=== PATIENT | female | born 1990 | race Caucasian/White ===

== ENCOUNTER 2016-12-10 13:11 | Emergency (ER) | payer OTHER ==
[2016-12-10 13:21] VITALS: BP 137/92; PULSE 91; RESP 20; TEMP 97.8
[2016-12-10] MEDS ORDERED: GELATIN SPONGE,ABSORB (LARGE) 1 EACH SPONGE TOPICAL STA (14:02)
[2016-12-10] MEDS ORDERED: TOPICAL SKIN ADHESIVE 1 EACH AMP TOPICAL ONE (14:13)
--- NOTE | 2016-12-10 14:21 | ED ---
Wound/Laceration HPI - General Chief Complaint: Wound/Laceration Stated Complaint: Foot Laceration, cold symptoms Time Seen by Provider: 12/10/16 13:42 Source: patient, RN notes reviewed Mode of arrival: ambulatory Limitations: no limitations - History of Present Illness Initial Comments: Patient is a 26-year-old [employer] chief complaint of a right foot laceration. Patient reports that she was walking and her son dropped a bottle coconut oil. She she reports that the glass shattered. She did remove the piece of glass from her foot. She denies any decreased range of motion or peripheral persist paresthesias in her foot. She also reports that she is currently 20 weeks . She states that for the past few days she's had cold-like symptoms including fever or chills, sore throat. She states that she has not taken any Motrin or Tylenol. Patient's concerned that she does have the flu other family members have had similar symptoms. Patient denies any recent shortness of breath , chest pain, back pain, abdominal pain, nausea vomiting, numbness or tingling, dysuria or hematuria, constipation or diarrhea, headaches or visual changes, or any other current symptoms - Related Data Allergies Allergy/AdvReac Type Severity Reaction Status Date / Time Penicillins AdvReac Rash/Hives Verified 12/10/16 13:21 Review of Systems ROS Statement: Those systems with pertinent positive or pertinent negative responses have been documented in the HPI. ROS Other: All systems not noted in ROS Statement are negative. Past Medical History Past Medical History: No Reported History History of Any Multi-Drug Resistant Organisms: None Reported Past Surgical History: Appendectomy Past Psychological History: No Psychological Hx Reported Smoking Status: Never smoker Past Alcohol Use History: None Reported Past Drug Use History: None Reported General Exam - General Exam Comments Initial Comments: Well-appearing 26-year-old female. Patient does not appear to be in any acute distress. Limitations: no limitations General appearance: alert, in no apparent distress Head exam: Present: atraumatic, normocephalic, normal inspection Eye exam: Present: normal appearance, PERRL, EOMI. Absent: scleral icterus, conjunctival injection, periorbital swelling ENT exam: Present: normal exam, mucous membranes moist Neck exam: Present: normal inspection. Absent: tenderness, meningismus, lymphadenopathy Respiratory exam: Present: normal lung sounds bilaterally. Absent: respiratory distress, wheezes, rales, rhonchi, stridor Cardiovascular Exam: Present: regular rate, normal rhythm, normal heart sounds. Absent: systolic murmur, diastolic murmur, rubs, gallop, clicks GI/Abdominal exam: Present: soft, normal bowel sounds. Absent: distended, tenderness, guarding, rebound, rigid Extremities exam: Present: normal inspection, full ROM, normal capillary refill. Absent: tenderness, pedal edema, joint swelling, calf tenderness Right Lower Leg exam: Present: normal inspection, full ROM Ankle exam: Present: normal inspection, full ROM. Absent: swelling Foot/Toe exam: Present: full ROM, tenderness. Absent: normal inspection Neurovascular tendon exam: Present: no vascular compromise 1 - laceration 2 - laceration. 1cm Back exam: Present: normal inspection Neurological exam: Present: alert, oriented X3, CN II-XII intact Psychiatric exam: Present: normal affect, normal mood Skin exam: Present: warm, dry, intact, normal color. Absent: rash Course Vital Signs 12/10/16 13:18 Temperature 97.8 F Pulse Rate 91 Respiratory 20 Rate Blood Pressure 137/92 O2 Sat by Pulse 99 Oximetry Procedures - Laceration Laceration #1 Site: foot (right ) Size (cm): 1 Description: linear Depth: simple, single layer Sedation/Analgesia: midazolam Anesthetic Used: benzocaine 0.25% Anesthesia Technique: local infiltration Amount (mls): 2 Pre-repair: wound explored, irrigated extensively Type of Sutures: nylon Size of Sutures: 6-0 Number of Sutures: 2 Technique: simple, interrupted Patient Tolerated Procedure: well, no complications, other (Second toe laceration was closed with Dermabond.) Medical Decision Making - Medical Decision Making Patient is a 26-year-old [employer] chief complaint of a right foot laceration. The wound was cleaned with Betadine and soap solution. The laceration was closed with 2 sutures in the toe laceration was closed with Dermabond. Wound was dressed. Patient was monitored for any signs of infection. She also is complaining of upper respiratory symptoms for approximately 3-4 days. She does test positive for influenza B. Patient is 20 weeks . I discussed the possibility of Tamiflu is technically not indicated that she has passed the 48 hours as well as is category C in . Patient agrees that she does not want to take Tamiflu. I did advise her to take Tylenol and to rest and increase fluids. Patient understands the treatment plan will comply. She also understands she needs return the emergency Department for suture removal. Return parameters were discussed. - Lab Data Lab Results 12/10/16 Range/Units 14:15 Influenza Type A RNA Not Detected (Not Detectd) Influenza Type B (PCR) Detected H (Not Detectd) Disposition Clinical Impression: Foot laceration, Upper respiratory infection, Influenza B Disposition: HOME SELF-CARE Condition: Good Instructions: Care For Your Stitches (ED), Skin Adhesive Care (ED), Influenza ( ED) Additional Instructions: Please return to the emergency room in 8-10 days to have sutures removed. Please leave wound covered for the first 24-48 hours and then leave open to air after that time. Please use clean soap and water to clean the suture area to prevent scabbing over the top of your sutures. Please watch for any signs of infection which may include but not limited to increased pain, swelling, redness , fever or chills. Please return to the emergency room if any signs of infection do occur. Please return to the emergency room for any other concerns or complications. Patient advised to take Tylenol for the pain. Referrals: None,Stated [Primary Care Provider] - 1-2 days Eugene Hebert MD [REFERRING] - 1-2 days Time of Disposition: 14:48
== END 2016-12-10 15:12 | disposition home or self-care (01) ==
LOC: EC 13:11
DX: O99.512 Diseases of the respiratory system complicating pregnancy, second trimester (principal); S91.311A Laceration without foreign body, right foot, initial encounter; J10.1 Influenza due to other identified influenza virus with other respiratory manifestations; Z3A.20 20 weeks gestation of pregnancy; W25.XXXA Contact with sharp glass, initial encounter; Y93.01 Activity, walking, marching and hiking; Z88.0 Allergy status to penicillin
CPT/HCPCS: 12001; 87502; 99283

== ENCOUNTER 2017-11-07 15:05 | Emergency (ER) | payer OTHER ==
[2017-11-07 15:13] VITALS: BP 138/72; PULSE 122; RESP 20; TEMP 99
--- NOTE | 2017-11-07 15:25 | ED ---
General Adult HPI - General Chief complaint: Skin/Abscess/Foreign Body Stated complaint: Back pain Time Seen by Provider: 11/07/17 15:14 Source: patient, RN notes reviewed Mode of arrival: ambulatory Limitations: no limitations - History of Present Illness Initial comments: 27-year-old female presents to the emergency department with a chief complaint of right buttock pain. She states that she had a cyst on the right buttock that drained yesterday. She continues to have some redness and pain surrounding the area so she was concerned. She denies any history of this in the past. She denies any nausea vomiting. She states that she has been nervous about it. She doesn't know she's had fevers or not. She denies any vomiting with this. She has a history of this in the past. She was concerned due to his urethra so she thought that she should be seen.Patient denies any recent fever, chills, shortness of breath, chest pain, back pain, abdominal pain , nausea vomiting, numbness or tingling, dysuria or hematuria, constipation or diarrhea, headaches or visual changes, or any other current symptoms. - Related Data Previous Rx's Medication Instructions Recorded Cephalexin [Keflex] 500 mg PO Q6HR #40 cap 11/07/17 Sulfamethox-Tmp 800-160Mg [Bactrim 2 each PO Q12HR #56 tab 11/07/17 DS 800-160 mg] Allergies Allergy/AdvReac Type Severity Reaction Status Date / Time Penicillins AdvReac Rash/Hives Verified 11/07/17 15:12 Review of Systems ROS Statement: Those systems with pertinent positive or pertinent negative responses have been documented in the HPI. ROS Other: All systems not noted in ROS Statement are negative. Past Medical History Past Medical History: No Reported History History of Any Multi-Drug Resistant Organisms: None Reported Past Surgical History: Appendectomy, Section Past Psychological History: No Psychological Hx Reported Smoking Status: Never smoker Past Alcohol Use History: None Reported Past Drug Use History: None Reported General Exam Limitations: no limitations General appearance: alert, in no apparent distress ENT exam: Present: normal exam, mucous membranes moist Neck exam: Present: normal inspection. Absent: tenderness, meningismus, lymphadenopathy Respiratory exam: Present: normal lung sounds bilaterally. Absent: respiratory distress, wheezes, rales, rhonchi, stridor Cardiovascular Exam: Present: regular rate, normal rhythm, normal heart sounds Neurological exam: Present: alert, oriented X3 Psychiatric exam: Present: normal affect, normal mood Skin exam: Present: warm, dry, intact, other ( induration to the right gluteal area. No fluctuation.) Course Vital Signs 11/07/17 15:09 Temperature 99 F Pulse Rate 122 H Respiratory 20 Rate Blood Pressure 138/72 O2 Sat by Pulse 99 Oximetry Medical Decision Making - Medical Decision Making 27-year-old male presents for appears to be right gluteal cellulitis. There is concern that there may have been an abscess that she has had a drain. This time we discussed the abscess could form and we need to drink that time and return for hours and follow-up. We will start her on antibiotics. All questions have been answered. She will be discharged. Disposition Clinical Impression: Cellulitis, gluteal, right, Abscess, gluteal, right Disposition: HOME SELF-CARE Condition: Stable Instructions: Abscess (ED) Additional Instructions: Please use medication as discussed. Please follow up with family doctor if symptoms have not improved over the next two days. Please return to the emergency room if your symptoms increase or worsen or for any other concerns. Prescriptions: Cephalexin [Keflex] 500 mg PO Q6HR #40 cap Sulfamethox-Tmp 800-160Mg [Bactrim DS 800-160 mg] 2 each PO Q12HR #56 tab Referrals: Wilda Li MD [REFERRING] - 1-2 days Time of Disposition: 15:25
== END 2017-11-07 15:29 | disposition home or self-care (01) ==
LOC: EC 15:05
DX: L03.317 Cellulitis of buttock (principal); L02.31 Cutaneous abscess of buttock; Z88.0 Allergy status to penicillin
CPT/HCPCS: 99283

== ENCOUNTER 2018-04-03 10:56 | Emergency (ER) | payer OTHER ==
[2018-04-03 11:24] VITALS: BP 142/87; PULSE 99; RESP 18; TEMP 99.1
--- NOTE | 2018-04-03 12:02 | ED ---
General Adult HPI - General Chief complaint: ENT Stated complaint: Sore throat Time Seen by Provider: 04/03/18 11:41 Source: patient, RN notes reviewed Mode of arrival: ambulatory Limitations: no limitations - History of Present Illness Initial comments: Patient is a pleasant 27-year-old female presenting to the emergency Department with complaints of sore throat and left earache. Onset of symptoms was a couple days ago. Patient states it does hurt to swallow. Otherwise patient is tolerating oral intake. No difficulty breathing. Patient states also has discomfort of the left ear. No drainage. Patient's child also is presenting with ear problems. Patient has not had fevers. - Related Data Home Medications Medication Instructions Recorded Confirmed Dm/Acetaminophen/Doxylamine [Vicks 15 ml PO Q6H PRN 04/03/18 04/03/18 Nyquil Cold-Flu Liquid] Previous Rx's Medication Instructions Recorded Azithromycin [Zithromax Z-pack] 250 mg PO DIRECTED #6 tab 04/03/18 Allergies Allergy/AdvReac Type Severity Reaction Status Date / Time Penicillins AdvReac Rash/Hives Verified 04/03/18 11:39 Review of Systems ROS Statement: Those systems with pertinent positive or pertinent negative responses have been documented in the HPI. ROS Other: All systems not noted in ROS Statement are negative. Constitutional: Denies: fever, chills Eyes: Denies: eye pain ENT: Reports: ear pain, throat pain Respiratory: Denies: dyspnea Cardiovascular: Denies: chest pain Endocrine: Denies: fatigue Gastrointestinal: Denies: abdominal pain Genitourinary: Denies: dysuria Musculoskeletal: Denies: back pain Skin: Denies: rash Neurological: Denies: weakness Past Medical History Past Medical History: No Reported History History of Any Multi-Drug Resistant Organisms: None Reported Past Surgical History: Appendectomy, Section Past Psychological History: No Psychological Hx Reported Smoking Status: Never smoker Past Alcohol Use History: None Reported Past Drug Use History: None Reported General Exam Limitations: no limitations General appearance: alert, in no apparent distress Head exam: Present: atraumatic Eye exam: Present: normal appearance ENT exam: Present: TM's normal bilaterally, other (Pharyngeal erythema is present) Expanded Mouth exam: Absent: drooling, trismus, muffled voice Neck exam: Present: normal inspection. Absent: tenderness, lymphadenopathy Respiratory exam: Present: normal lung sounds bilaterally Cardiovascular Exam: Present: regular rate, normal rhythm Neurological exam: Present: alert Psychiatric exam: Present: normal affect, normal mood Skin exam: Present: normal color Course Vital Signs 04/03/18 11:22 Temperature 99.1 F Pulse Rate 99 Respiratory 18 Rate Blood Pressure 142/87 O2 Sat by Pulse 99 Oximetry Disposition Clinical Impression: Pharyngitis Disposition: HOME SELF-CARE Condition: Stable Instructions: Pharyngitis (ED) Additional Instructions: Please follow-up with primary care physician in the next couple days for recheck. Return for not tolerating fluids, difficulty breathing, worsening symptoms or other concerns. [id number] Motrin as needed. Over-the- counter vitamin C. Salt water gargle. Prescriptions: Azithromycin [Zithromax Z-pack] 250 mg PO DIRECTED #6 tab Is patient prescribed a controlled substance at d/c from ED?: No Referrals: Pratima Macias MD [STAFF PHYSICIAN] - 1-2 days Time of Disposition: 12:02
== END 2018-04-03 12:07 | disposition home or self-care (01) ==
LOC: EC 10:56
DX: J02.9 Acute pharyngitis, unspecified (principal); Z88.0 Allergy status to penicillin
CPT/HCPCS: 99282